=== PATIENT | male | born 2000 | race Hispanic/Latino ===

== ENCOUNTER 2020-06-11 15:04 | Inpatient (IN) | payer OTHER ==
[~2020-06-11] VITALS: Ht 170.2 cm; Wt 69.3 kg
[2020-06-11] MEDS ORDERED: hydroxyzine (15:14)
[2020-06-11] MEDS ORDERED: prozac (15:14)
[2020-06-11 16:14] LABS: HEMATOCRIT 41.8 % (42.0-52.0); HEMOGLOBIN 14.5 g/dl (13.5-17.5); MEAN CORPUSCULAR HEMOGLOBIN 28.8 pg (27.0-33.0); MEAN CORPUSCULAR HGB CONC 34.7 g/dl (32.0-36.5); MEAN CORPUSCULAR VOLUME 83.1 fl (80.0-96.0); PLATELET COUNT, AUTOMATED 220 10^3/uL (150-450); RED BLOOD COUNT 5.03 10^6/uL (4.30-6.10); WHITE BLOOD COUNT 7.8 10^3/uL (4.0-10.0)
[2020-06-11 16:42] LABS: AMPHETAMINES LEVEL URINE NEGATIVE (NEGATIVE); BARBITURATES URINE NEGATIVE (NEGATIVE); BENZODIAZEPINES URINE NEGATIVE (NEGATIVE); CANNABINOIDS URINE NEGATIVE (NEGATIVE); COCAINE METABOLITE URINE NEGATIVE (NEGATIVE); METHADONE URINE NEGATIVE (NEGATIVE); OPIATES URINE NEGATIVE (NEGATIVE); PHENCYCLIDINE URINE NEGATIVE (NEGATIVE)
[2020-06-11 17:02] LABS: ACETAMINOPHEN LEVEL < 2.0 UG/ML (10.0-30.0); ALBUMIN 4.3 GM/DL (3.2-5.2); ALT/SGPT 29 U/L (12-78); BILIRUBIN,DIRECT 0.2 MG/DL (0.0-0.2); BILIRUBIN,TOTAL 0.7 MG/DL (0.2-1.0); BLOOD UREA NITROGEN 13 MG/DL (7-18); CALCIUM LEVEL 9.2 MG/DL (8.5-10.1); CARBON DIOXIDE LEVEL 30 MEQ/L (21-32); CHLORIDE LEVEL 106 MEQ/L (98-107); CREATININE FOR GFR 0.91 MG/DL (0.70-1.30); ETHYL ALCOHOL (ETHANOL) < 0.003 % (0.000-0.010); GLOMERULAR FILTRATION RATE > 60.0 (>60); GLUCOSE, FASTING 93 MG/DL (70-100); POTASSIUM SERUM 4.3 MEQ/L (3.5-5.1); SALICYLATE LEVEL < 1.7 MG/DL (5.0-30.0); SODIUM LEVEL 141 MEQ/L (136-145); TOTAL PROTEIN 7.6 GM/DL (6.4-8.2)
[2020-06-11] MEDS ORDERED: FLUO20CA22 PO (21:38)
[2020-06-11] MEDS ORDERED: HYDR-3363 PO (21:38)
[2020-06-12] MEDS ORDERED: HYDR-643 PO (08:13)
[2020-06-12] MEDS ORDERED: FLUoxetine 20 MG CAP PO ONE (08:15)
--- NOTE | 2020-06-12 08:25 | ECGEPIP ---
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
[2020-06-12] MEDS ORDERED: MAALOX 30 ML SUSP *UDC PO PRN (16:45)
[2020-06-12] MEDS ORDERED: MOM 30ML SUSPENSION UDC PO PRN (16:45)
[2020-06-12] MEDS ORDERED: IBUPROFEN 400 MG TAB PO PRN (16:45)
[2020-06-12] MEDS ORDERED: traZODone 50 MG TAB PO PRN (16:45)
[2020-06-13 06:40] VITALS: BP 130/69
[2020-06-13] MEDS: FLUoxetine 20 MG CAP PO SCH (08:25)
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
--- NOTE | 2020-06-13 18:21 | HPEPDOC ---
[facility] Medical History & Physical Date of Admission Jun 12, 2020 Date of Service: Jun 13, 2020 History and Physical CHIEF COMPLAINT: Suicide ideation HISTORY OF PRESENT ILLNESS: Mr. Vincent is a 19 year old male with anxiety and depression who is here in the inpatient mental health unit for suicidal ideation. He is active duty. He was having a moment a stress and commented, "didn't want to be alive". When I saw him in the inpatient mental health unit, he appeared well. He denied any fevers or chills, lightheadedness or dizziness, chest pain, dyspnea, cough, abdominal pain, diarrhea, constipation, or dysuria. Physically he feels well. PAST MEDICAL HISTORY: 1. Depression. 2. Anxiety. PAST SURGICAL HISTORY: 1. [place] tooth removal. SOCIAL HISTORY: Denies smoking Denies alcohol. He stopped drinking alcoholic feeds and wants interaction with antidepressant Denies recreational drug use FAMILY HISTORY: Patient tells me that he doesn't know his parents past medical history ALLERGIES: Please see below. REVIEW OF SYSTEMS: CONSTITUTIONAL: Denies any fever or chills. Denies lightheadedness or dizziness. ENT: Denies rhinorrhea. Denies sore throat. Denies dysphagia. RESPIRATORY: Denies shortness of breath. Denies cough. CARDIOVASCULAR: Denies chest pain. Denies palpitations. GASTROINTESTINAL: Denies abdominal pain. Denies diarrhea. Denies constipation GENITOURINARY: Denies dysuria. CUTANEOUS: Denies rashes. MUSCULOSKELETAL: Denies muscle weakness. NEUROLOGICAL: Denies neuropathy. Denies paresthesias. PSYCHOLOGICAL: Denies anxiety. Denies depression. HOME MEDICATIONS: Please see below. PHYSICAL EXAMINATION: VITAL SIGNS: Temperature 98.2, pulse 82, respiratory rate 12, blood pressure 130/69, pulse oximetry 97 % on room air. GENERAL: Comfortable, in no apparent distress. HEENT: Head normocephalic/atraumatic, EOMI, sclera clear. NECK: Supple, no JVD. RESPIRATORY: Lungs clear to auscultation bilaterally, no rales, wheeze or rhonchi. CARDIOVASCULAR: Regular rate and rhythm. ABDOMEN: Soft, nontender, no guarding or rebound tenderness. Normal bowel sounds. MUSCLE SKELETAL: Muscle strength 5/5 in all extremities. NEUROLOGICAL: CN 312 grossly intact, no focal deficits noted. PSYCHOLOGICAL: Normal mood and affect LABORATORY DATA: See below. ASSESSMENT: Mr. Vincent is a 19-year-old male with depression and anxiety who is in the inpatient mental health unit for suicide ideation. Physically he is feeling well. Recommend that he readily follows up with his PCP. . PLAN: 1. Suicide ideation Being managed in the inpatient mental health unit. 2. Depression On fluoxetine 3. Anxiety He tells me at home he takes Atarax for anxiety. Tells me that while he's been here, he's been feeling calm Thank you for consulting us, we will sign off now. If there is any other questions or concerns do not hesitate to reconsult us. Vital Signs Vital Signs Date Time Temp Pulse Resp B/P (MAP) Pulse Ox O2 Delivery O2 Flow Rate FiO2 06/13/20 06:40 98.2 82 12 130/69 (89) Room Air 06/12/20 17:27 97 Home Medications Scheduled Fluoxetine Hcl (Fluoxetine HCl) 20 Mg Capsule, 20 MG PO DAILY Hydroxyzine HCl (Hydroxyzine HCl) 10 Mg Tablet, 30 MG PO QHS Allergies Coded Allergies: Penicillins (Verified Allergy, Unknown, 06/11/20) A-FIB/CHADSVASC A-FIB History Current/History of A-Fib/PAF?: No RELL WHITAKER DO Jun 13, 2020 18:14
[2020-06-13 18:36] VITALS: BP 108/55
[2020-06-14 06:47] VITALS: BP 114/63
[2020-06-14] MEDS: FLUoxetine 20 MG CAP PO SCH (08:15)
[2020-06-14] MEDS ORDERED: HYDR-643 PO (09:01)
[2020-06-14] MEDS ORDERED: FLUO20CA22 PO (09:01)
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
== END 2020-06-14 10:30 | disposition home or self-care (01) | DRG 885 ==
LOC: M ED 15:04 → M ED INP 06-12 16:43 → M PSY 06-12 18:00
PROVIDERS: ADMIT Psychiatry & Neurology Psychiatry; ATTEND Psychiatry & Neurology Psychiatry
DX: F32.0 Major depressive disorder, single episode, mild (principal); R45.851 Suicidal ideations; F41.9 Anxiety disorder, unspecified; Z88.0 Allergy status to penicillin